=== PATIENT | male | born 1975 ===

== ENCOUNTER 2020-02-12 12:16 | Emergency (ER) | payer BC ==
[~2020-02-12] VITALS: Ht 185.4 cm; Wt 93.0 kg
== END 2020-02-12 13:53 | disposition home or self-care (01) ==
LOC: ER 12:16
DX: S61.012A Laceration without foreign body of left thumb without damage to nail, initial encounter (principal); W26.0XXA Contact with knife, initial encounter
CPT/HCPCS: 12001; 99282-25

== ENCOUNTER 2021-04-29 06:14 | Day surgery (SDC) | payer BC | END 2021-04-29 09:55 | disposition home or self-care (01) | LOC: ORSCSDS 06:14 → ORSCMMR 07:30 → ORSCSDS 09:55 → ORSCMMR 11:00 → ORSCSDS 11:00 → ORD 11:00 | PROVIDERS: Orthopaedic Surgery | PROC: 0LM30ZZ Reattachment of Right Upper Arm Tendon, Open Approach (ICD-10-PCS; principal; 2021-04-29 07:30) | DX: S46.211A Strain of muscle, fascia and tendon of other parts of biceps, right arm, initial encounter (principal); Z87.891 Personal history of nicotine dependence; X58.XXXA Exposure to other specified factors, initial encounter; Y93.54 Activity, bowling | CPT/HCPCS: C1713; J0171; J0690; J1100; J1885; J2405; J2704; J3010 ==